=== PATIENT | male | born 1940 | race Caucasian/White ===

== ENCOUNTER 2018-08-19 19:05 | Inpatient (IN) ==
[2018-08-19] MEDS ORDERED: ONDANSETRON ODT 4 MG TABLET PO ONE (19:35)
[2018-08-19 20:23] LABS: Basophils % 0.4 % (0.0-0.8); Eosinophils # 0.2 10*3/uL (0.0-0.87); Eosinophils % 1.9 % (0.00-10.9); Hematocrit 34.7 VOL% (42.0-52.0); Hemoglobin 11.5 GM/DL (14.0-18.0); Immature Granulocytes % 0.8 %; Immature Granulocytes Absolute 0.07 #; Lymphocytes # 0.4 10*3/uL (1.4-4.0); Lymphocytes % 5.3 % (21.2-54.2); Mean Corpuscular HGB Conc 33.1 GM/DL (32-36); Mean Corpuscular Hemoglobin 26 PG (27-34); Mean Corpuscular Volume 79.8 FL (87-102); Mean Platelet Volume 9.5 FL (9.6-12.0); Monocytes # 0.5 10*3/uL (0.11-0.8); Monocytes % 6.4 % (1.7-12.7); Neutrophils # 7.1 10*3/uL (1.4-7.4); Neutrophils % 85.2 % (38.7-73.9); Platelet Count 139 T/CUMM (130-400); Red Blood Count 4.35 MC/CUMM (3.8-5.5); Red Cell Distribution Width 14.1 % (9.3-17.3); White Blood Count 8.3 T/CUMM (4-12)
[2018-08-19 20:43] LABS: Calcium 8.6 MG/DL (8.5-10.1); Osmolality,Calculated 272.2 MOS/KG (273-304); Potassium 3.5 MMOL/L (3.5-5.1)
[2018-08-19] MEDS ORDERED: MORPHINE 4 MG/1 ML VIAL IV PRN (21:41)
[2018-08-19] MEDS: SODIUM CHLORIDE 0.9% 1,000 ML IV SCH (22:29)
[2018-08-19] MEDS: ONDANSETRON 4 MG/2 ML VIAL IV PRN (22:30)
[2018-08-20] MEDS ORDERED: CLINDAMYCIN INJ 900 MG in PREMIX 1 EACH IV ONE (07:23)
[2018-08-20 08:07] LABS: Basophils % 0.4 % (0.0-0.8); Eosinophils # 0.4 10*3/uL (0.0-0.87); Eosinophils % 4.6 % (0.00-10.9); Hematocrit 33.5 VOL% (42.0-52.0); Immature Granulocytes % 0.4 %; Immature Granulocytes Absolute 0.03 #; Lymphocytes # 0.7 10*3/uL (1.4-4.0); Lymphocytes % 8.1 % (21.2-54.2); Mean Corpuscular HGB Conc 32.8 GM/DL (32-36); Mean Corpuscular Hemoglobin 26 PG (27-34); Mean Corpuscular Volume 79.4 FL (87-102); Mean Platelet Volume 9.4 FL (9.6-12.0); Monocytes # 0.7 10*3/uL (0.11-0.8); Monocytes % 8.1 % (1.7-12.7); Neutrophils # 6.5 10*3/uL (1.4-7.4); Neutrophils % 78.4 % (38.7-73.9); Platelet Count 132 T/CUMM (130-400); Red Blood Count 4.22 MC/CUMM (3.8-5.5); Red Cell Distribution Width 14.1 % (9.3-17.3); White Blood Count 8.3 T/CUMM (4-12)
[2018-08-20 08:09] LABS: Calcium 8.3 MG/DL (8.5-10.1); Osmolality,Calculated 271.2 MOS/KG (273-304); Potassium 3.5 MMOL/L (3.5-5.1)
[2018-08-20] MEDS ORDERED: Glycopyrrolate/Formoterol Fum [Bevespi Aerosphere Inhaler] INH SCH (09:00)
[2018-08-20] MEDS ORDERED: TEMAZEPAM 7.5 MG CAPSULE PO PRN (09:07)
[2018-08-20] MEDS ORDERED: diphenhydrAMINE CAP 25 MG CAPSULE PO PRN (09:07)
[2018-08-20] MEDS ORDERED: PROMETHAZINE 25 MG/1 ML VIAL IM PRN (09:07)
[2018-08-20] MEDS ORDERED: BISACODYL 10 MG SUPP RECTAL PRN (09:07)
[2018-08-20] MEDS ORDERED: LACTULOSE 20 GM/30 ML UDCUP PO PRN (09:07)
[2018-08-20] MEDS ORDERED: MAGNESIUM HYDROXIDE SUSP 30 ML UDCUP PO PRN (09:07)
[2018-08-20] MEDS ORDERED: MORPHINE 4 MG/1 ML VIAL IV PRN ×2 (09:10→09:36)
[2018-08-20] MEDS ORDERED: SEVOFLURANE 1 UNIT/15 MINUTE INH ONE (11:40)
[2018-08-20] MEDS ORDERED: fentaNYL 100 MCG/2 ML VIAL ONE (11:40)
[2018-08-20] MEDS ORDERED: GLYCOPYRROLATE 0.4 MG/2 ML VIAL ONE (11:41)
[2018-08-20] MEDS ORDERED: DEXAMETHASONE 10 MG/1 ML VIAL ONE (11:41)
[2018-08-20] MEDS ORDERED: ACETAMINOPHEN 1,000 MG/100 ML VIAL IV ONE (11:41)
[2018-08-20] MEDS ORDERED: ONDANSETRON 4 MG/2 ML VIAL ONE (11:41)
[2018-08-20] MEDS ORDERED: KETOROLAC 30 MG/1 ML VIAL ONE (11:41)
[2018-08-20] MEDS ORDERED: ETOMIDATE 40 MG/20 ML VIAL IV ONE (11:41)
[2018-08-20] MEDS ORDERED: ROCURONIUM 100 MG/10 ML VIAL IV ONE (11:42)
[2018-08-20] MEDS ORDERED: PHENYLEPHRINE 1 MG/10 ML SYRINGE IV ONE (11:42)
[2018-08-20] MEDS ORDERED: NEOSTIGMINE 10 MG/10 ML VIAL ONE (11:42)
[2018-08-20] MEDS: OLMESARTAN 20 MG TABLET PO SCH (11:55)
[2018-08-20] MEDS: METOPROLOL TARTRATE 25 MG TABLET PO SCH ×2 (11:55→20:36)
[2018-08-20] MEDS: hydroCHLOROthiazide 12.5 MG CAPSULE PO SCH (11:55)
[2018-08-20] MEDS: PANTOPRAZOLE 40 MG TABLET PO SCH (11:56)
[2018-08-20] MEDS: TRIAMCINOLONE 0.1% CREAM 15 GM TUBE TOP SCH ×2 (11:56→20:36)
[2018-08-20] MEDS: amLODIPine 5 MG TABLET PO SCH (11:56)
[2018-08-20] MEDS: SODIUM CHLORIDE 0.9% 1,000 ML IV SCH (14:01)
[2018-08-20] MEDS: CLINDAMYCIN INJ 900 MG in PREMIX 1 EACH IV SCH ×2 (15:15→23:59)
[2018-08-20] MEDS ORDERED: TUBERCULIN SKIN TEST 0.1 ML SYRINGE INTRADERM ONE (19:33)
[2018-08-20] MEDS: ATORVASTATIN 20 MG TABLET PO SCH (20:36)
[2018-08-20] MEDS: DOCUSATE SODIUM 100 MG CAPSULE PO SCH (20:37)
[2018-08-21] MEDS: SODIUM CHLORIDE 0.9% 1,000 ML IV SCH ×2 (00:27→15:21)
[2018-08-21] MEDS: FLUTICASONE 50 MCG NASAL SPRAY 16 GM BOTTLE BOTH NARES SCH ×2 (02:05→08:15)
[2018-08-21 05:38] LABS: Calcium 7.5 MG/DL (8.5-10.1); Osmolality,Calculated 270.5 MOS/KG (273-304); Potassium 3.4 MMOL/L (3.5-5.1)
[2018-08-21 05:39] LABS: Basophils % 0.1 % (0.0-0.8); Eosinophils % 0.1 % (0.00-10.9); Hematocrit 24.8 VOL% (42.0-52.0); Hemoglobin 8.4 GM/DL (14.0-18.0); Immature Granulocytes % 0.5 %; Immature Granulocytes Absolute 0.05 #; Lymphocytes # 0.4 10*3/uL (1.4-4.0); Lymphocytes % 4.2 % (21.2-54.2); Mean Corpuscular HGB Conc 33.9 GM/DL (32-36); Mean Corpuscular Hemoglobin 27 PG (27-34); Mean Corpuscular Volume 78.5 FL (87-102); Mean Platelet Volume 10.2 FL (9.6-12.0); Monocytes # 0.7 10*3/uL (0.11-0.8); Monocytes % 6.7 % (1.7-12.7); Neutrophils # 8.7 10*3/uL (1.4-7.4); Neutrophils % 88.4 % (38.7-73.9); Platelet Count 136 T/CUMM (130-400); Red Blood Count 3.16 MC/CUMM (3.8-5.5); Red Cell Distribution Width 14.2 % (9.3-17.3); White Blood Count 9.9 T/CUMM (4-12)
[2018-08-21 06:05] LABS: Anisocytosis Slight; Band Neutrophils 8 % (0-10); Lymphocytes 2 % (20-55); Nucleated Red Blood Cells 1 (0-5); Platelet Estimate Adequate; Segmented Neutrophils 85 % (50-85); Total Cells Counted 100
[2018-08-21] MEDS: OLMESARTAN 20 MG TABLET PO SCH (08:16)
[2018-08-21] MEDS: hydroCHLOROthiazide 12.5 MG CAPSULE PO SCH (08:16)
[2018-08-21] MEDS: METOPROLOL TARTRATE 25 MG TABLET PO SCH ×2 (08:17→21:07)
[2018-08-21] MEDS: CLOPIDOGREL 75 MG TABLET PO SCH (08:17)
[2018-08-21] MEDS: TRIAMCINOLONE 0.1% CREAM 15 GM TUBE TOP SCH ×2 (08:17→21:08)
[2018-08-21] MEDS: PANTOPRAZOLE 40 MG TABLET PO SCH (08:17)
[2018-08-21] MEDS: DOCUSATE SODIUM 100 MG CAPSULE PO SCH ×2 (08:17→21:07)
[2018-08-21 11:07] LABS: Apearance,Urine CLEAR (Clear); Bilirubin,Urine Negative (Negative); Blood, Urine Moderate mg/dL (Negative); Glucose,Urine (UA) Negative (Negative); Ketones,Urine Negative (Negative); Nitrite,Urine Negative (Negative); Protein,Urine Negative; RBC,Urine 31 /HPF (0-4); Urine Color Yellow (Yellow); Urine Specific Gravity 1.013 (1.001-1.035); Urine Urobilinogen < 2.0 EU/DL (0.2-1.0); WBC,Urine 7 /HPF (0-6)
[2018-08-21] MEDS: amLODIPine 5 MG TABLET PO SCH (11:12)
[2018-08-21] MEDS: POTASSIUM CHLORIDE 20 MEQ TABLET PO SCH (11:13)
[2018-08-21] MEDS: ONDANSETRON 4 MG/2 ML VIAL IV PRN (16:23)
[2018-08-21] MEDS ORDERED: traMADol 50 MG TABLET PO PRN (17:47)
[2018-08-21] MEDS: ATORVASTATIN 20 MG TABLET PO SCH (21:07)
[2018-08-22] MEDS: SODIUM CHLORIDE 0.9% 1,000 ML IV SCH (03:16)
[2018-08-22 05:19] LABS: Basophils % 0.1 % (0.0-0.8); Eosinophils # 0.2 10*3/uL (0.0-0.87); Eosinophils % 1.9 % (0.00-10.9); Hematocrit 24.8 VOL% (42.0-52.0); Hemoglobin 8.1 GM/DL (14.0-18.0); Immature Granulocytes % 0.5 %; Immature Granulocytes Absolute 0.05 #; Lymphocytes # 0.6 10*3/uL (1.4-4.0); Lymphocytes % 6.7 % (21.2-54.2); Mean Corpuscular HGB Conc 32.7 GM/DL (32-36); Mean Corpuscular Hemoglobin 26 PG (27-34); Mean Corpuscular Volume 80.3 FL (87-102); Mean Platelet Volume 9.7 FL (9.6-12.0); Monocytes % 10.8 % (1.7-12.7); Neutrophils # 7.4 10*3/uL (1.4-7.4); Platelet Count 137 T/CUMM (130-400); Red Blood Count 3.09 MC/CUMM (3.8-5.5); Red Cell Distribution Width 14.3 % (9.3-17.3); White Blood Count 9.3 T/CUMM (4-12)
[2018-08-22 08:54] LABS: Albumin 2.8 G/DL (3.4-5.0); Bilirubin,Total 0.6 MG/DL (0.2-1.0); Calcium 7.6 MG/DL (8.5-10.1); Osmolality,Calculated 270.4 MOS/KG (273-304); Potassium 3.6 MMOL/L (3.5-5.1); Total Protein 5.8 G/DL (6.4-8.3)
[2018-08-22] MEDS: hydroCHLOROthiazide 12.5 MG CAPSULE PO SCH (10:59)
[2018-08-22] MEDS: CLOPIDOGREL 75 MG TABLET PO SCH (10:59)
[2018-08-22] MEDS: amLODIPine 5 MG TABLET PO SCH (11:00)
[2018-08-22] MEDS: DOCUSATE SODIUM 100 MG CAPSULE PO SCH (11:00)
[2018-08-22] MEDS: METOPROLOL TARTRATE 25 MG TABLET PO SCH (11:00)
[2018-08-22] MEDS: OLMESARTAN 20 MG TABLET PO SCH (11:00)
[2018-08-22] MEDS: PANTOPRAZOLE 40 MG TABLET PO SCH (11:00)
[2018-08-22] MEDS: POTASSIUM CHLORIDE 20 MEQ TABLET PO SCH (11:00)
[2018-08-22 11:10] VITALS: BP 132/57
[2018-08-22] MEDS: TRIAMCINOLONE 0.1% CREAM 15 GM TUBE TOP SCH (11:17)
[2018-08-22] MEDS: FLUTICASONE 50 MCG NASAL SPRAY 16 GM BOTTLE BOTH NARES SCH (11:17)
== END 2018-08-22 14:50 | DRG 470 ==
LOC: N.ED 19:05 → N.EDINP 21:41 → N.3E 23:57
PROVIDERS: ADMIT Hospitalist; ATTEND Hospitalist